=== PATIENT | male | born 1955 | race Caucasian/White ===

== ENCOUNTER 2021-04-17 12:47 | Outpatient (CLI) | payer MEDICARE, SELFPAY | END 2021-04-17 12:48 | disposition home or self-care (01) | LOC: ANHBWCAUD 12:58 | PROVIDERS: PCP Otolaryngology; Visit Provider Otolaryngology | DX: H90.3 Sensorineural hearing loss, bilateral (principal) | CPT/HCPCS: 92557; 92567 ==

== ENCOUNTER 2021-08-17 12:39 | Outpatient (RCR) | payer MEDICARE, SELFPAY | END 2021-11-15 23:59 | disposition home or self-care (01) | LOC: ANHBWCAUD 12:39 | PROVIDERS: PCP Otolaryngology; Visit Provider Otolaryngology | DX: Z46.1 Encounter for fitting and adjustment of hearing aid (principal) | CPT/HCPCS: 99199 ==